=== PATIENT | female | born 1975 | race Caucasian/White ===

== ENCOUNTER 2017-07-07 21:47 | Inpatient (IN) | payer OTHER ==
[2017-07-08 00:27] LABS: ADD MAN DIFF? NO
[2017-07-08 00:29] LABS: WHITE BLOOD COUNT 5.9 10^3/ul (4.8-10.8)
[2017-07-08 00:29] LABS: BASOPHILS % 0.3 % (0.0-2.0); EOSINOPHILS # 0.1 10^3/ul (0.0-0.5); EOSINOPHILS % 1.4 % (0.0-7.0); HEMATOCRIT 34.2 % (37.0-47.0); HEMOGLOBIN 11.3 g/dl (12.0-16.0); LYMPHOCYTES # 1.6 10^3/ul (0.8-2.9); LYMPHOCYTES % 27.1 % (15.0-51.0); MEAN CORPUSCULAR HEMOGLOBIN 27.3 pg (29.0-33.0); MEAN CORPUSCULAR VOLUME 82.6 fl (82.0-101.0); MEAN PLATELET VOLUME 11.8 fl (7.4-10.4); MONOCYTE # 0.3 10^3/ul (0.3-0.9); MONOCYTES % 5.3 % (0.0-11.0); NEUTROPHIL # 3.8 10^3/ul (1.6-7.5); NEUTROPHILS % 65.2 % (39.0-77.0); PLATELET COUNT 152 10^3/UL (140-415); RED BLOOD COUNT 4.14 10^6/ul (4.20-5.40); RED CELL DISTRIBUTION WIDTH 15.9 % (11.5-14.5)
[2017-07-08 00:49] LABS: ALANINE AMINOTRANSFERASE 24 IU/L (13-69); ALBUMIN 3.2 g/dl (3.3-4.9); ALKALINE PHOSPHATASE 190 IU/L (42-121); ANION GAP 10 (8-16); ASPARTATE AMINO TRANSFERASE 16 IU/L (15-46); BILIRUBIN,INDIRECT 0.1 mg/dl (0-1.1); BILIRUBIN,TOTAL 0.1 mg/dl (0.2-1.3); BLOOD UREA NITROGEN 4 mg/dl (7-20); CALCIUM 10.6 mg/dl (8.4-10.2); CARBON DIOXIDE 25 mmol/L (21-31); CHLORIDE 106 mmol/L (97-110); CREATININE 0.44 mg/dl (0.44-1.00); GLUCOSE 107 mg/dl (70-220); POTASSIUM 3.7 mmol/L (3.5-5.1); SODIUM 137 mmol/L (135-144); TOTAL PROTEIN 6.4 g/dl (6.1-8.1)
[2017-07-08 00:54] LABS: ADD UMIC YES; UR ASCORBIC ACID NEGATIVE (NEGATIVE); UR BACTERIA MANY /HPF (NONE SEEN); UR BILIRUBIN (Dip) NEGATIVE (NEGATIVE); UR BLOOD (Dip) 1+ mg/dL (NEGATIVE); UR CLARITY SLIGHTLY CLOUDY (CLEAR); UR COLOR YELLOW (YELLOW); UR GLUCOSE (Dip) NEGATIVE (NEGATIVE); UR KETONES (Dip) 1+ mg/dL (NEGATIVE); UR LEUKOCYTE ESTERASE (Dip) 3+ Leu/ul (NEGATIVE); UR NITRITE (Dip) NEGATIVE (NEGATIVE); UR RBC 2 /HPF (0-5); UR SPECIFIC GRAVITY (Dip) 1.005 (1.003-1.030); UR SQUAMOUS EPITHELIAL CELL FEW /HPF (FEW); UR TOTAL PROTEIN (Dip) NEGATIVE (NEGATIVE); UR UROBILINOGEN (Dip) NEGATIVE (NEGATIVE); UR WBC 69 /HPF (0-5)
[2017-07-08] MEDS ORDERED: AL HYDROX/MG HYDROX/SIMETH 30 ML CUP PO (01:00)
[2017-07-08 01:13] LABS: INR 0.93; PARTIAL THROMBOPLASTIN TIME 26.6 Sec (25.0-35.0); PROTIME 12.6 Sec (11.9-14.9)
[2017-07-08] MEDS: LACTATED RINGER'S 1,000 ML IV ×4 (02:33→22:54)
[2017-07-08] MEDS: BETAMET NA PHOS/AC(6 MG/ML) 5ML INJ IM ×2 (02:34→15:54)
[2017-07-08 04:12] LABS: HEPATITIS B SURFACE ANTIGEN NEGATIVE (NEGATIVE)
[2017-07-08 05:02] LABS: AMPHETAMINE/METHAMPHETAMINE Negative (NEGATIVE); BARBITURATES Negative (NEGATIVE); BENZODIAZEPINES Negative (NEGATIVE); CANNABINOIDS Negative (NEGATIVE); COCAINE Negative (NEGATIVE); OPIATES Negative (NEGATIVE)
[2017-07-08] MEDS: MAGNESIUM SULFATE 4 GM/100 ML 100 ML IV (11:01)
[2017-07-08] MEDS: MAGNESIUM SULFATE 20 GM/500 ML 500 ML IV ×2 (11:41→19:29)
[2017-07-08 15:08] LABS: RAPID PLASMA REAGIN NONREACTIVE (NR)
[2017-07-08] MEDS ORDERED: TERBUTALINE 1 ML (15:40)
[2017-07-08] MEDS: TERBUTALINE 1 MG/ML INJ SC (15:54)
[2017-07-08] MEDS ORDERED: OXYTOCIN 30 UNITS/LR 500 ML IV ×2 (16:30→22:49)
[2017-07-08] MEDS ORDERED: CARBOPROST 250 MCG INJ IM (16:30)
[2017-07-08] MEDS ORDERED: MISOPROSTOL 200 MCG TAB PR ×2 (16:30→23:00)
[2017-07-08] MEDS ORDERED: METHYLERGONOVINE 0.2 MG INJ IM (16:30)
[2017-07-08 19:28] LABS: URIC ACID 3.3 mg/dl (3.1-7.9)
[2017-07-08 19:31] LABS: MAGNESIUM 5.3 mg/dl (1.7-2.5)
[2017-07-08] MEDS ORDERED: EPHEDrine SULFATE 50 MG/5 ML SYG (22:49)
[2017-07-08] MEDS ORDERED: METOCLOPRAMIDE 10 MG INJ (22:50)
[2017-07-08] MEDS ORDERED: OXYTOCIN 10 UNIT INJ ×2 (22:50→23:12)
[2017-07-08] MEDS ORDERED: ONDANSETRON 4 MG INJ (22:50)
[2017-07-08] MEDS ORDERED: morphine SULFATE/PF (10 MG/10 ML) INJ (22:50)
[2017-07-08] MEDS: CEFAZOLIN 2 GM/50 ML (PMX) 50 ML IV (22:55)
[2017-07-08] MEDS ORDERED: NA PHOSPHATE/BIPHOS 133 ML ENEMA PR (23:00)
[2017-07-08] MEDS ORDERED: OXYCODONE/ACETAMINOPHEN (5/325) TAB PO ×2 (23:00)
[2017-07-08] MEDS ORDERED: LANOLIN 7 GM TUBE TOP (23:00)
[2017-07-09] MEDS ORDERED: IBUPROFEN 600 MG TAB PO
[2017-07-09] MEDS ORDERED: LABETALOL 200 MG TAB PO (00:30)
[2017-07-09 01:29] LABS: ADD MAN DIFF? NO
[2017-07-09 01:31] LABS: WHITE BLOOD COUNT 9.6 10^3/ul (4.8-10.8)
[2017-07-09 01:31] LABS: BASOPHILS % 0.1 % (0.0-2.0); HEMATOCRIT 35.4 % (37.0-47.0); HEMOGLOBIN 11.8 g/dl (12.0-16.0); LYMPHOCYTES # 0.9 10^3/ul (0.8-2.9); LYMPHOCYTES % 9.4 % (15.0-51.0); MEAN CORPUSCULAR HEMOGLOBIN 27.3 pg (29.0-33.0); MEAN CORPUSCULAR HGB CONC 33.3 g/dl (32.0-37.0); MEAN CORPUSCULAR VOLUME 81.9 fl (82.0-101.0); MEAN PLATELET VOLUME 12.1 fl (7.4-10.4); MONOCYTE # 0.4 10^3/ul (0.3-0.9); MONOCYTES % 3.9 % (0.0-11.0); NEUTROPHIL # 8.3 10^3/ul (1.6-7.5); NEUTROPHILS % 85.8 % (39.0-77.0); PLATELET COUNT 176 10^3/UL (140-415); RED BLOOD COUNT 4.32 10^6/ul (4.20-5.40); RED CELL DISTRIBUTION WIDTH 16.2 % (11.5-14.5)
[2017-07-09] MEDS: OXYTOCIN 30 UNITS/LR 500 ML IV (01:53)
[2017-07-09 01:54] LABS: INR 0.97; PARTIAL THROMBOPLASTIN TIME 24.1 Sec (25.0-35.0)
[2017-07-09 02:01] LABS: ALANINE AMINOTRANSFERASE 24 IU/L (13-69); ALBUMIN 3.2 g/dl (3.3-4.9); ALBUMIN/GLOBULIN RATIO 1.03; ALKALINE PHOSPHATASE 202 IU/L (42-121); ANION GAP 14 (8-16); ASPARTATE AMINO TRANSFERASE 19 IU/L (15-46); BILIRUBIN,INDIRECT 0.3 mg/dl (0-1.1); BILIRUBIN,TOTAL 0.3 mg/dl (0.2-1.3); BLOOD UREA NITROGEN 3 mg/dl (7-20); CALCIUM 9.7 mg/dl (8.4-10.2); CARBON DIOXIDE 19 mmol/L (21-31); CHLORIDE 108 mmol/L (97-110); CREATININE 0.42 mg/dl (0.44-1.00); GLUCOSE 150 mg/dl (70-220); POTASSIUM 5.3 mmol/L (3.5-5.1); SODIUM 136 mmol/L (135-144); TOTAL PROTEIN 6.3 g/dl (6.1-8.1); URIC ACID 3.2 mg/dl (3.1-7.9)
[2017-07-09 02:02] LABS: MAGNESIUM 3.3 mg/dl (1.7-2.5)
[2017-07-09] MEDS ORDERED: morphine 2 MG INJ IV ×2 (02:30)
[2017-07-09] MEDS ORDERED: ONDANSETRON 4 MG INJ IV (02:30)
[2017-07-09] MEDS ORDERED: EPHEDrine SULFATE 50 MG/5 ML SYG IV (02:30)
[2017-07-09] MEDS ORDERED: DIPHENHYDRAMINE 50 MG INJ IV (02:30)
[2017-07-09] MEDS ORDERED: NALOXONE (0.4 MG/ML) INJ IV (02:30)
[2017-07-09 02:31] LABS: ADD UMIC YES; UR ASCORBIC ACID NEGATIVE (NEGATIVE); UR BACTERIA FEW /HPF (NONE SEEN); UR BILIRUBIN (Dip) NEGATIVE (NEGATIVE); UR BLOOD (Dip) 1+ mg/dL (NEGATIVE); UR CLARITY CLEAR (CLEAR); UR COLOR STRAW (YELLOW); UR GLUCOSE (Dip) 1+ mg/dL (NEGATIVE); UR KETONES (Dip) 2+ mg/dL (NEGATIVE); UR LEUKOCYTE ESTERASE (Dip) NEGATIVE Leu/ul (NEGATIVE); UR NITRITE (Dip) NEGATIVE (NEGATIVE); UR RBC 12 /HPF (0-5); UR SPECIFIC GRAVITY (Dip) 1.016 (1.003-1.030); UR TOTAL PROTEIN (Dip) 1+ mg/dl (NEGATIVE); UR UROBILINOGEN (Dip) NEGATIVE (NEGATIVE); UR WBC 6 /HPF (0-5)
[2017-07-09] MEDS: LACTATED RINGER'S 1,000 ML IV ×3 (05:40→22:54)
[2017-07-09] MEDS: morphine SULFATE/PF (10 MG/10 ML) INJ SPINAL (07:30)
[2017-07-09 08:19] LABS: ADD MAN DIFF? NO
[2017-07-09 08:28] LABS: WHITE BLOOD COUNT 10.8 10^3/ul (4.8-10.8)
[2017-07-09 08:28] LABS: BASOPHILS % 0.1 % (0.0-2.0); HEMATOCRIT 31.3 % (37.0-47.0); HEMOGLOBIN 10.2 g/dl (12.0-16.0); LYMPHOCYTES % 9.6 % (15.0-51.0); MEAN CORPUSCULAR HEMOGLOBIN 27.1 pg (29.0-33.0); MEAN CORPUSCULAR HGB CONC 32.6 g/dl (32.0-37.0); MEAN CORPUSCULAR VOLUME 83.2 fl (82.0-101.0); MEAN PLATELET VOLUME 12.5 fl (7.4-10.4); MONOCYTE # 0.6 10^3/ul (0.3-0.9); MONOCYTES % 5.4 % (0.0-11.0); NEUTROPHIL # 9.1 10^3/ul (1.6-7.5); NEUTROPHILS % 84.3 % (39.0-77.0); PLATELET COUNT 180 10^3/UL (140-415); RED BLOOD COUNT 3.76 10^6/ul (4.20-5.40); RED CELL DISTRIBUTION WIDTH 16.5 % (11.5-14.5)
[2017-07-09] MEDS: SENNA/DOCUSATE NA (8.6MG/50MG) TAB PO ×2 (09:15→20:38)
[2017-07-09] MEDS: KETOROLAC 30 MG INJ IV (20:38)
[2017-07-10] MEDS: IBUPROFEN 600 MG TAB PO ×5 (00:24→23:28)
[2017-07-10] MEDS ORDERED: OXYCODONE/ACETAMINOPHEN (5/325) TAB PO ×4 (02:30)
[2017-07-10] MEDS ORDERED: IBUPROFEN 600 MG TAB PO ×2 (06:00)
[2017-07-10] MEDS: INFLUENZA VIRUS VACCINE 0.5 ML (DISPENSING) IM* (09:00)
[2017-07-10] MEDS: SENNA/DOCUSATE NA (8.6MG/50MG) TAB PO ×2 (10:03→21:14)
[2017-07-11] MEDS: IBUPROFEN 600 MG TAB PO ×2 (05:31→12:03)
[2017-07-11] MEDS: MEASLES,MUMPS,RUBELLA VACCINE INJ SC* (09:00)
[2017-07-11] MEDS: SENNA/DOCUSATE NA (8.6MG/50MG) TAB PO (09:00)
[2017-07-11] MEDS: DIPHTH/TET/ACEL PERTUSS (ADULT) 0.5 ML VIAL IM* (12:05)
== END 2017-07-11 13:15 | disposition home or self-care (01) | DRG 766 ==
LOC: OBT 21:47 → PP1 07-09 02:46 → L-D 21:49
PROC: 10D00Z1 Extraction of Products of Conception, Low, Open Approach (ICD-10-PCS; principal; 2017-07-08)
PROC: 0UB90ZZ Excision of Uterus, Open Approach (ICD-10-PCS; 2017-07-08)
DX: O60.14X0 Preterm labor third trimester with preterm delivery third trimester, not applicable or unspecified (principal); O24.419 Gestational diabetes mellitus in pregnancy, unspecified control; Z37.0 Single live birth; Z3A.35 35 weeks gestation of pregnancy; O34.13 Maternal care for benign tumor of corpus uteri, third trimester
CPT/HCPCS: 76815; 76818; 80053; 80307; 81001; 82962; 83735; 84560; 85025; 85384; 85610; 85730; 86592; 86850; 86900; 86901; 87340; 88305; 90686; 90715; 94760; 99464

== ENCOUNTER 2017-10-26 12:44 | Emergency (ER) | payer OTHER ==
[2017-10-26 15:20] LABS: URINE BLOOD (Dip) POC 2+ (NEGATIVE); URINE GLUCOSE (Dip) POC Negative (NEGATIVE); URINE KETONES (Dip) POC Negative (NEGATIVE); URINE LEUKOCYTE EST (Dip) POC 2+ (NEGATIVE); URINE NITRITE (Dip) POC Positive (NEGATIVE); URINE TOTAL PROTEIN POC 1+ (NEGATIVE)
== END 2017-10-26 15:43 | disposition home or self-care (01) ==
LOC: FTE 15:43
DX: N39.0 Urinary tract infection, site not specified (principal); L03.317 Cellulitis of buttock
CPT/HCPCS: 81003; 81025; 99284

== ENCOUNTER 2018-07-03 18:14 | Inpatient (IN) | payer OTHER ==
[2018-07-03 18:52] LABS: ADD MAN DIFF? NO
[2018-07-03] MEDS: SOD CHLORIDE 0.9% 1,000 ML IV ×2 (18:56→23:16)
[2018-07-03 18:57] LABS: BASOPHIL # 0.1 10^3/ul (0.0-0.1); BASOPHILS % 0.6 % (0.0-2.0); EOSINOPHILS # 0.1 10^3/ul (0.0-0.5); EOSINOPHILS % 1.1 % (0.0-7.0); HEMATOCRIT 40.2 % (37.0-47.0); HEMOGLOBIN 13.2 g/dl (12.0-16.0); LYMPHOCYTES # 2.5 10^3/ul (0.8-2.9); LYMPHOCYTES % 31.6 % (15.0-51.0); MEAN CORPUSCULAR HEMOGLOBIN 27.3 pg (29.0-33.0); MEAN CORPUSCULAR HGB CONC 32.8 g/dl (32.0-37.0); MEAN CORPUSCULAR VOLUME 83.1 fl (82.0-101.0); MEAN PLATELET VOLUME 11.5 fl (7.4-10.4); MONOCYTE # 0.3 10^3/ul (0.3-0.9); MONOCYTES % 3.9 % (0.0-11.0); NEUTROPHILS % 62.4 % (39.0-77.0); PLATELET COUNT 257 10^3/UL (140-415); RED BLOOD COUNT 4.84 10^6/ul (4.20-5.40); RED CELL DISTRIBUTION WIDTH 14.6 % (11.5-14.5)
[2018-07-03] MEDS: HYDROmorphONE 1 MG/ML SYG IV (18:57)
[2018-07-03] MEDS: KETOROLAC 15 MG INJ IV (18:57)
[2018-07-03] MEDS: ONDANSETRON 4 MG INJ IV (18:57)
[2018-07-03 19:15] LABS: ADD UMIC YES; UR ASCORBIC ACID NEGATIVE (NEGATIVE); UR BACTERIA FEW /HPF (NONE SEEN); UR BILIRUBIN (Dip) NEGATIVE (NEGATIVE); UR BLOOD (Dip) 2+ mg/dL (NEGATIVE); UR CLARITY CLOUDY (CLEAR); UR COLOR YELLOW (YELLOW); UR GLUCOSE (Dip) NEGATIVE (NEGATIVE); UR KETONES (Dip) NEGATIVE (NEGATIVE); UR LEUKOCYTE ESTERASE (Dip) 3+ Leu/ul (NEGATIVE); UR MUCUS FEW /HPF (NONE SEEN); UR NITRITE (Dip) NEGATIVE (NEGATIVE); UR RBC 48 /HPF (0-5); UR SPECIFIC GRAVITY (Dip) 1.013 (1.003-1.030); UR TOTAL PROTEIN (Dip) NEGATIVE (NEGATIVE); UR UROBILINOGEN (Dip) NEGATIVE (NEGATIVE); UR WBC > 182 /HPF (0-5)
[2018-07-03 19:23] LABS: ANION GAP 8 (5-13); BLOOD UREA NITROGEN 11 mg/dl (7-20); CALCIUM 10.7 mg/dl (8.4-10.2); CARBON DIOXIDE 19 mmol/L (21-31); CHLORIDE 110 mmol/L (97-110); CREATININE 0.52 mg/dl (0.44-1.00); Estimated GFR > 60 mL/min (>60); GLUCOSE 112 mg/dl (70-220); POTASSIUM 4.2 mmol/L (3.5-5.1); SODIUM 137 mmol/L (135-144)
[2018-07-03] MEDS: TAMSULOSIN (SR) 0.4 MG CAP PO ×2 (19:30→21:30)
[2018-07-03] MEDS: HYDROmorphONE 0.5 MG/0.5 ML SYG IV ×2 (19:40→20:42)
[2018-07-03] MEDS: CEFTRIAXONE 1 GM/50 ML (PMX) 50 ML IVPB (20:43)
[2018-07-03] MEDS ORDERED: ACETAMINOPHEN 325 MG TAB PO ×2 (21:00→21:30)
[2018-07-03] MEDS ORDERED: NACL 0.9% 3 ML SYG IV (21:30)
[2018-07-03] MEDS ORDERED: ONDANSETRON 4 MG INJ IV (21:30)
[2018-07-03] MEDS ORDERED: ALBUTEROL/IPRATROPIUM (NEB) 3 ML AMP HHN (21:30)
[2018-07-04] MEDS: HYDROmorphONE 2 MG/ML SYG IV (00:59)
[2018-07-04] MEDS: ONDANSETRON 4 MG INJ IV (01:43)
[2018-07-04 05:09] LABS: WHITE BLOOD COUNT 12.6 10^3/ul (4.8-10.8)
[2018-07-04 05:09] LABS: ABNORMAL IP MESSAGE 1; HEMATOCRIT 37.1 % (37.0-47.0); MEAN CORPUSCULAR HEMOGLOBIN 27.1 pg (29.0-33.0); MEAN CORPUSCULAR HGB CONC 32.3 g/dl (32.0-37.0); MEAN CORPUSCULAR VOLUME 83.7 fl (82.0-101.0); MEAN PLATELET VOLUME 11.6 fl (7.4-10.4); PLATELET COUNT 172 10^3/UL (140-415); RED BLOOD COUNT 4.43 10^6/ul (4.20-5.40); RED CELL DISTRIBUTION WIDTH 14.9 % (11.5-14.5)
[2018-07-04 05:26] LABS: POSITIVE DIFF @See below
[2018-07-04 05:27] LABS: ADD MAN DIFF? YES
[2018-07-04 05:33] LABS: ALANINE AMINOTRANSFERASE 94 IU/L (13-69); ALBUMIN 3.6 g/dl (3.3-4.9); ALBUMIN/GLOBULIN RATIO 1.09; ALKALINE PHOSPHATASE 108 IU/L (42-121); ANION GAP 7 (5-13); ASPARTATE AMINO TRANSFERASE 135 IU/L (15-46); BILIRUBIN,INDIRECT 0.3 mg/dl (0-1.1); BILIRUBIN,TOTAL 0.3 mg/dl (0.2-1.3); BLOOD UREA NITROGEN 9 mg/dl (7-20); CARBON DIOXIDE 21 mmol/L (21-31); CHLORIDE 111 mmol/L (97-110); CREATININE 0.53 mg/dl (0.44-1.00); Estimated GFR > 60 mL/min (>60); GLUCOSE 129 mg/dl (70-220); MAGNESIUM 1.6 mg/dl (1.7-2.5); POTASSIUM 3.5 mmol/L (3.5-5.1); SODIUM 139 mmol/L (135-144); TOTAL PROTEIN 6.9 g/dl (6.1-8.1)
[2018-07-04] MEDS: PIPER-TAZO 3.375 GM IV (PMX) 100 ML IVPB ×3 (06:27→18:46)
[2018-07-04 08:36] LABS: ANISOCYTOSIS 1+ (0-0); BAND NEUTROPHILS #M 4.9 10^3/ul (0.0-0.6); BAND NEUTROPHILS % (M) 39 % (0-4); BASOPHIL #M 0.1 10^3/ul (0.0-0.0); BASOPHILS % (M) 1 % (0-2); GIANT THROMBO% (M) 6 % (0-0); LYMPHOCYTES #M 0.7 10^3/ul (0.8-2.9); LYMPHOCYTES % (M) 6 % (15-51); METAMYELOCYTES #M 0.2 10^3/ul (0.0-0.0); METAMYELOCYTES %M 2 % (0-0); MICROCYTOSIS 1+ (0-0); MONOCYTE #M 0.2 10^3/ul (0.3-0.9); MONOCYTES % (M) 2 % (0-11); PLATELET ESTIMATE NORMAL; POLYCHROMASIA 1+ (0-0); SEG NEUT #M 6.9 10^3/ul (1.6-7.5); SEGMENTED NEUTROPHILS (M) % 50 % (39-77); SMUDGE%M 1 % (0-0)
[2018-07-04] MEDS ORDERED: CEFTRIAXONE 1 GM/50 ML (PMX) 50 ML IVPB (09:00)
[2018-07-04] MEDS: HYDROCODONE/APAP (5/325) TAB PO ×2 (10:36→20:58)
[2018-07-04] MEDS: SOD CHLORIDE 0.9% 1,000 ML IV ×2 (10:39→12:24)
[2018-07-04] MEDS: POTASSIUM PHOSPHATE 20 MEQ in SOD CHLORIDE 0.9% 250 ML IVPB (14:48)
[2018-07-04] MEDS: MAGNESIUM OXIDE 400 MG TAB PO (20:55)
[2018-07-04 23:33] LABS: LACTIC ACID 1.4 mmol/L (0.5-2.0)
[2018-07-05] MEDS: PIPER-TAZO 3.375 GM IV (PMX) 100 ML IVPB ×3 (00:19→11:48)
[2018-07-05 05:35] LABS: ADD MAN DIFF? NO
[2018-07-05 05:37] LABS: WHITE BLOOD COUNT 11.3 10^3/ul (4.8-10.8)
[2018-07-05 05:37] LABS: BASOPHILS % 0.3 % (0.0-2.0); EOSINOPHILS # 0.1 10^3/ul (0.0-0.5); EOSINOPHILS % 0.9 % (0.0-7.0); HEMATOCRIT 36.2 % (37.0-47.0); HEMOGLOBIN 11.7 g/dl (12.0-16.0); LYMPHOCYTES # 0.8 10^3/ul (0.8-2.9); LYMPHOCYTES % 6.9 % (15.0-51.0); MEAN CORPUSCULAR HEMOGLOBIN 26.7 pg (29.0-33.0); MEAN CORPUSCULAR HGB CONC 32.3 g/dl (32.0-37.0); MEAN CORPUSCULAR VOLUME 82.6 fl (82.0-101.0); MEAN PLATELET VOLUME 12.1 fl (7.4-10.4); MONOCYTE # 0.4 10^3/ul (0.3-0.9); MONOCYTES % 3.7 % (0.0-11.0); NEUTROPHIL # 9.8 10^3/ul (1.6-7.5); NEUTROPHILS % 87.2 % (39.0-77.0); PLATELET COUNT 151 10^3/UL (140-415); RED BLOOD COUNT 4.38 10^6/ul (4.20-5.40); RED CELL DISTRIBUTION WIDTH 15.4 % (11.5-14.5)
[2018-07-05] MEDS: SOD CHLORIDE 0.9% 1,000 ML IV (05:45)
[2018-07-05 05:47] LABS: LACTIC ACID 1.1 mmol/L (0.5-2.0)
[2018-07-05 05:58] LABS: PHOSPHORUS 2.3 mg/dl (2.5-4.9)
[2018-07-05 05:58] LABS: INR 1.08; PROTIME 14.1 Sec (11.9-14.9); PT RATIO 1.1
[2018-07-05 05:59] LABS: PARTIAL THROMBOPLASTIN TIME 34.3 Sec (23.0-35.0)
[2018-07-05 06:02] LABS: ANION GAP 4 (5-13); BLOOD UREA NITROGEN 7 mg/dl (7-20); CALCIUM 10.3 mg/dl (8.4-10.2); CARBON DIOXIDE 25 mmol/L (21-31); CHLORIDE 112 mmol/L (97-110); CREATININE 0.59 mg/dl (0.44-1.00); Estimated GFR > 60 mL/min (>60); GLUCOSE 112 mg/dl (70-220); MAGNESIUM 2.1 mg/dl (1.7-2.5); POTASSIUM 3.9 mmol/L (3.5-5.1); SODIUM 141 mmol/L (135-144)
[2018-07-05] MEDS: MAGNESIUM OXIDE 400 MG TAB PO ×2 (09:00→21:00)
[2018-07-05] MEDS: HYDROCODONE/APAP (5/325) TAB PO ×2 (10:29→15:59)
[2018-07-05] MEDS: CEFTRIAXONE 1 GM/50 ML (PMX) 50 ML IVPB (17:39)
[2018-07-05] MEDS ORDERED: GLYCOPYRROLATE 0.4 MG INJ (19:15)
[2018-07-05] MEDS ORDERED: MIDAZOLAM 1 MG/ML 2 ML INJ (19:16)
[2018-07-05] MEDS ORDERED: NEOSTIGMINE 3 MG/3 ML SYRINGE (19:16)
[2018-07-05] MEDS ORDERED: DEXAMETHASONE 4 MG/ML 5 ML INJ (19:16)
[2018-07-05] MEDS ORDERED: ONDANSETRON 4 MG INJ (19:16)
[2018-07-05] MEDS ORDERED: FENTAnyl 50 MCG/ML VIAL (19:16)
[2018-07-05] MEDS ORDERED: CEFAZOLIN 1 GM INJ (19:16)
[2018-07-05] MEDS ORDERED: PROPOFOL 20 ML (19:16)
[2018-07-05] MEDS ORDERED: ROCURONIUM 50 MG INJ (19:16)
[2018-07-05] MEDS ORDERED: IOHEXOL 300MG/ML 30 ML BTL (20:16)
[2018-07-05] MEDS ORDERED: PHENYLephrine (100 MCG/ML) 5ML SYG (20:31)
[2018-07-05] MEDS ORDERED: SUGAMMADEX SODIUM 200 MG/2 ML VIAL IV (21:25)
[2018-07-05] MEDS ORDERED: ONDANSETRON 4 MG INJ IV (22:00)
[2018-07-05] MEDS ORDERED: FENTAnyl 50 MCG/ML VIAL IV (22:00)
[2018-07-05] MEDS ORDERED: HYDROmorphONE 1 MG/5 ML IV SYRINGE IV (22:00)
[2018-07-06] MEDS: SOD CHLORIDE 0.9% 1,000 ML IV (02:30)
[2018-07-06] MEDS: HYDROCODONE/APAP (5/325) TAB PO ×2 (02:30→06:34)
[2018-07-06 05:40] LABS: ADD MAN DIFF? NO
[2018-07-06 05:47] LABS: BASOPHILS % 0.1 % (0.0-2.0); HEMATOCRIT 36.2 % (37.0-47.0); HEMOGLOBIN 11.6 g/dl (12.0-16.0); LYMPHOCYTES # 0.9 10^3/ul (0.8-2.9); LYMPHOCYTES % 9.7 % (15.0-51.0); MEAN CORPUSCULAR HEMOGLOBIN 26.7 pg (29.0-33.0); MEAN CORPUSCULAR VOLUME 83.2 fl (82.0-101.0); MEAN PLATELET VOLUME 11.7 fl (7.4-10.4); MONOCYTE # 0.1 10^3/ul (0.3-0.9); MONOCYTES % 1.2 % (0.0-11.0); NEUTROPHIL # 7.9 10^3/ul (1.6-7.5); NEUTROPHILS % 88.2 % (39.0-77.0); PLATELET COUNT 178 10^3/UL (140-415); RED BLOOD COUNT 4.35 10^6/ul (4.20-5.40); RED CELL DISTRIBUTION WIDTH 14.8 % (11.5-14.5)
[2018-07-06 06:10] LABS: ALBUMIN 3.8 g/dl (3.3-4.9); ANION GAP 7 (5-13); BLOOD UREA NITROGEN 5 mg/dl (7-20); CALCIUM 10.7 mg/dl (8.4-10.2); CARBON DIOXIDE 19 mmol/L (21-31); CHLORIDE 114 mmol/L (97-110); CREATININE 0.48 mg/dl (0.44-1.00); GLUCOSE 139 mg/dl (70-220); MAGNESIUM 2.2 mg/dl (1.7-2.5); PHOSPHORUS 1.9 mg/dl (2.5-4.9); POTASSIUM 4.2 mmol/L (3.5-5.1); SODIUM 140 mmol/L (135-144)
[2018-07-06] MEDS: MAGNESIUM OXIDE 400 MG TAB PO (08:38)
== END 2018-07-06 12:49 | disposition home or self-care (01) | DRG 661 ==
LOC: E/R 18:14 → MS1 20:56
PROC: 0T768DZ Dilation of Right Ureter with Intraluminal Device, Via Natural or Artificial Opening Endoscopic (ICD-10-PCS; principal; 2018-07-05 19:00)
PROC: 0TC68ZZ Extirpation of Matter from Right Ureter, Via Natural or Artificial Opening Endoscopic (ICD-10-PCS; 2018-07-05 19:00)
DX: N13.6 Pyonephrosis (principal); B96.20 Unspecified Escherichia coli [E. coli] as the cause of diseases classified elsewhere; B96.89 Other specified bacterial agents as the cause of diseases classified elsewhere; E83.59 Other disorders of calcium metabolism; N29 Other disorders of kidney and ureter in diseases classified elsewhere; R16.0 Hepatomegaly, not elsewhere classified; R16.1 Splenomegaly, not elsewhere classified; Z90.49 Acquired absence of other specified parts of digestive tract
CPT/HCPCS: 71045; 74018; 74176; 74430; 80048; 80053; 80069; 81001; 81025; 83605; 83735; 84100; 85025; 85610; 85730; 87040; 87086; 88300; 93005; 96374; 96375; 96376; 99285-25